=== PATIENT | female | born 1960 | race Two or more races ===

== ENCOUNTER 2018-05-25 07:26 | Outpatient (CLI) | payer OTHER | END 2018-05-25 08:42 | disposition home or self-care (01) | LOC: NUCLEAR 07:26 | DX: I25.10 Atherosclerotic heart disease of native coronary artery without angina pectoris (principal) | CPT/HCPCS: A9500; 93017; 78452 ==

== ENCOUNTER 2019-02-20 07:23 | Outpatient (CLI) | payer OTHER | END 2019-02-20 07:27 | disposition home or self-care (01) | LOC: MAMO-SONO 07:23 | DX: N63.10 Unspecified lump in the right breast, unspecified quadrant (principal); N63.20 Unspecified lump in the left breast, unspecified quadrant; Z12.31 Encounter for screening mammogram for malignant neoplasm of breast ==

== ENCOUNTER 2019-05-31 15:02 | Outpatient (CLI) | payer OTHER | END 2019-05-31 16:19 | disposition home or self-care (01) | LOC: RAD 15:02 | DX: I10 Essential (primary) hypertension (principal); Z95.2 Presence of prosthetic heart valve ==

== ENCOUNTER 2019-06-27 11:57 | Outpatient (CLI) | payer OTHER | END 2019-06-27 12:03 | disposition home or self-care (01) | LOC: LAB 11:57 | DX: Z95.2 Presence of prosthetic heart valve (principal) ==

== ENCOUNTER → 2021-05-24 | Outpatient (CLI) | payer OTHER | END | disposition home or self-care (01) | LOC: MAMO-SONO 07:45 | PROVIDERS: ATTEND Specialist | DX: N64.59 Other signs and symptoms in breast (principal); Z12.31 Encounter for screening mammogram for malignant neoplasm of breast; Z87.898 Personal history of other specified conditions ==

== ENCOUNTER 2023-06-13 08:22 | Outpatient (CLI) | payer OTHER | END 2023-06-13 08:25 | disposition home or self-care (01) | LOC: MAMO-SONO 08:22 | PROVIDERS: ATTEND Specialist | DX: R10.9 Unspecified abdominal pain (principal); Z12.31 Encounter for screening mammogram for malignant neoplasm of breast; N63.0 Unspecified lump in unspecified breast ==

== ENCOUNTER → 2024-07-29 | Outpatient (CLI) | payer OTHER | END | disposition home or self-care (01) | LOC: MAMO-SONO 12:52 | PROVIDERS: ATTEND Specialist | DX: N63.0 Unspecified lump in unspecified breast (principal); Z12.31 Encounter for screening mammogram for malignant neoplasm of breast ==